=== PATIENT | female | born 1970 | race Caucasian/White ===

== ENCOUNTER → 2023-09-16 08:15 | Outpatient (REF) | payer OTHER, SELFPAY | LOC: WDC 08:15 | PROVIDERS: ATTENDING PHYSICIAN Nurse Practitioner Adult Health | DX: Z12.31 Encounter for screening mammogram for malignant neoplasm of breast (principal) | CPT/HCPCS: 77063; 77067 ==

== ENCOUNTER → 2023-09-24 09:26 | Outpatient (REF) | payer OTHER, SELFPAY | LOC: WDC 09:26 | PROVIDERS: ATTENDING PHYSICIAN Obstetrics & Gynecology; FAMILY PHYSICIAN Nurse Practitioner Adult Health | DX: N63.20 Unspecified lump in the left breast, unspecified quadrant (principal) | CPT/HCPCS: 76642 ==

== ENCOUNTER 2024-08-25 10:28 | Emergency (ER) | payer OTHER, SELFPAY ==
[2024-08-25 10:34] VITALS: BP 148/74
[2024-08-25 10:55] LABS: % Basophils 1.1 % (0-2); % Eosinophils 1.6 % (0-6); % Immature Granulocytes 0.3 % (0-0.5); % Lymphocytes 32.1 % (20.5-51.1); % Monocytes 5.6 % (1.7-9.3); % Neutrophils 59.3 % (42.2-75.2); Absolute Basophils 0.1 10^3/uL (0-0.2); Absolute Eosinophils 0.1 10^3/uL (0-0.7); Absolute Lymphocytes 2.3 10^3/uL (1.2-3.4); Absolute Monocytes 0.4 10^3/uL (0.1-0.6); Absolute Neutrophils 4.3 10^3/uL (1.4-6.5); Hemoglobin 13.8 g/dL (12.0-16.0); Mean Corp Hgb Conc. 33.7 g/dL (33.0-37.0); Mean Corpuscular Hgb 28.8 pg (27.0-31.0); Mean Corpuscular Volume 85.4 fL (81.0-99.0); Mean Platelet Volume 10.1 fL (7.4-10.4); Nucleated Red Blood Cells % 0 %; Platelet Count 278 10^3/uL (130-400); Red Cell Dist. Width 12.5 % (11.5-14.5); White Blood Cell Count 7.3 10^3/uL (4.8-10.8)
[2024-08-25 11:09] LABS: ALT (SGPT) 17 U/L (0-35); AST (SGOT) 20 U/L (14-36); Albumin 4.5 g/dl (3.5-5.0); Alkaline Phosphatase 70 U/L (38-126); Blood Urea Nitrogen 15 mg/dl (7-17); Calcium 9.6 mg/dl (8.4-10.2); Carbon Dioxide 28 mmol/L (22-30); Chloride 102 mmol/L (98-107); Glucose 173 mg/dl (70-99); Potassium 4.2 mmol/L (3.5-5.1); Sodium 139 mmol/L (135-145); Total Bilirubin 0.5 mg/dl (0.2-1.3); eGFR > 60.00
[2024-08-25 12:16] VITALS: BP 178/94
[2024-08-25 12:17] LABS: Troponin I < 0.012 ng/ml
--- NOTE | 2024-08-25 12:31 | ED.GENMED ---
History of Present Illness
General
Chief Complaint: Heart Rate Problem
Time Seen by Provider: 08/25/24 12:11
History of Present Illness
History of Present Illness:
54-year-old female with history of insulin-dependent diabetes, hyperlipidemia, and borderline hypertension presents to the emergency department for evaluation of heart palpitations and chest tightness occurring randomly over the past 3 days.
Episodes are seemingly random with no obvious provocation or palliation. Denies any exertional component. She did record several episodes on her Apple Watch personally reviewed these tracings multiple of which show PACs. She denies any symptoms
at present. Does report having a viral URI earlier this month but denies any recent fevers or chills, no shortness of breath, nausea, vomiting, or diarrhea. No new medication changes. Denies tobacco use.
Past History
Past History
ED Past Medical History: None
Social History
Living: with family
Employment: Employed
Review of Systems
Review of Systems
Allergies reviewed?: Yes
All Other Systems: ROS reviewed and negative except as documented in HPI and ROS
Phy Exam
Physical Exam
Physical Exam:
GEN: Well appearing, NAD, WDWN
HEENT: Oral mucosa moist, no scleral icterus
Cardiac: Regular rate and rhythm, no murmurs
Lung: No respiratory distress, no tachypnea, lungs clear to auscultation bilaterally
MSK: No gross deformity or injuries
Skin: Good color, no pallor or jaundice, no rashes
Neuro: AO x3, moves all extremities freely
Psych: Calm, cooperative
Course
Orders/Labs/Results
Orders:
Orders
08/25/24 10:29
Electrocardiogram (*1) Urgent
Reason for Study: Palpitations
EKG- Treatment ONCE
08/25/24 10:37
CMP [Comprehensive Metabolic Panel] Urgent
Complete Blood Count/With Diff Urgent
TSH Reflex To Free T4 Urgent
Comment: ADD ON
Troponin I Urgent
08/25/24 12:19
Add On- LAB Urgent
Tests Added?: TSH with reflex to T4
Abnormal Lab Results
08/25/24
10:37
Glucose 173 H mg/dl
(70-99)
08/25/24 10:37
08/25/24 10:37
Vital Signs
Initial and Last Documented VS:
Initial Vital Signs
Temp Pulse Resp BP Pulse Ox
98.5 F 86 16 148/74 97
08/25/24 10:34 08/25/24 10:34 08/25/24 10:34 08/25/24 10:34 08/25/24 10:34
Last Documented Vital Signs
Temp Pulse Resp BP Pulse Ox
98.5 F 75 18 178/94 99
08/25/24 10:34 08/25/24 12:19 08/25/24 12:17 08/25/24 12:16 08/25/24 12:17
MDM/Problems Addressed
MDM/Problems Addressed:
Patient with no appreciable ectopy in the emergency department. I did review her Apple Watch data showing frequent PACs which likely correlate with her symptoms. Discussed potential use of a beta-elizabeth however she is diabetic thus this would be
disadvantageous as a good mask hypoglycemic symptoms. Recommend outpatient cardiology follow-up
Comment
Comment:
EKG independently interpreted by me shows normal sinus rhythm at a rate of [address] changes concerning for ischemia
*Critical Care Note
Total Time (30-74mins, 75-104mins- exclusive of procedures): Not Applicable
ED Attending Note
-
Portions of this chart may have been created with voice recognition software.� Occasional wrong word or��sound alike� substitutions may have occurred due to the inherent limitations of voice recognition software.
Discharge Plan
Departure
Patient Disposition: Home (Routine Discharge)
Date of Disposition: 08/25/24
Time of Disposition: 14:26
Patient with high blood pressure during this ER visit?: No
Discharge Problem:
Atrial contractions, premature
Instructions: Palpitations (DC), Chest Pain CBC Follow Up
Prescriptions:
No Action
ascorbic acid (vitamin C) [Vitamin C] 1,000 MG tablet
1,000 mg PO DAILY
diphenhydramine-acetaminophen [Tylenol PM Extra Strength] 1 EACH tablet
2 ea PO HS
cholecalciferol (vitamin D3) [Vitamin D3] 1,000 UNIT capsule
1,000 unit PO DAILY
insulin glargine [Lantus Solostar U-100 Insulin] 300 UNITS/3 ML insulin pen
18 units SC DAILY
insulin glargine [Lantus Solostar U-100 Insulin] 300 UNITS/3 ML insulin pen
20 units SC HS
liraglutide [Victoza 2-Hiram] 0.6 MG/0.1 ML pen injector
1.8 mg SQ DAILY@0800
multivitamin with folic acid [Tab-A-Kelsey] 1 TABLET tablet
1 tab PO DAILY
Triple Immunity
1 tab PO DAILY
Referrals:
Amna Robbins CRNP [Family Provider] -
Activity Restrictions/Additional Instructions:
Your symptoms are most likely due to premature contractions, however I recommend you follow up with a preschool teacher's assistant to discuss further testing to rule out coronary artery disease
A beta elizabeth, such as metoprolol, could improve your symptoms, however this will mask signs of low blood sugar and would not be recommended to treat your PACs
Interventions
Interventions:
*Risk Screen - Suicide Last Done: 08/25/24 10:34
*General Assessment Last Done: 08/25/24 10:34
*Neglect/Abuse Screening Last Done: 08/25/24 10:34
ED- Fall Risk Assessment Last Done: 08/25/24 12:18
*ED COVID-19 Vaccine History Last Done: 08/25/24 10:34
*Nursing Disposition Last Done: 08/25/24 15:51
ED- Cardiac Assessment Last Done: 08/25/24 12:18
ED- Pulmonary Assessment Last Done: 08/25/24 12:18
Discharge Date and Time
Discharge Date/Time: 08/25/24 14:31
Print Language: MAURITIAN
[2024-08-25 15:49] LABS: TSH Reflex To Free T4 1.48 uIU/ml (0.47-4.68)
== END 2024-08-25 14:31 | disposition home or self-care (01) ==
LOC: EMR 10:28
PROVIDERS: Emergency Medicine; EMERGENCY PHYSICIAN Emergency Medicine; FAMILY PHYSICIAN Nurse Practitioner Adult Health
DX: I49.1 Atrial premature depolarization (principal); E11.9 Type 2 diabetes mellitus without complications; E78.00 Pure hypercholesterolemia, unspecified; Z79.4 Long term (current) use of insulin
CPT/HCPCS: 99283; 80053; 84443; 84484; 85025; 93005

== ENCOUNTER → 2024-09-19 08:19 | Outpatient (REF) | payer OTHER, SELFPAY | LOC: WDC 08:19 | PROVIDERS: ATTENDING PHYSICIAN Internal Medicine Cardiovascular Disease; FAMILY PHYSICIAN Nurse Practitioner Adult Health | DX: Z12.31 Encounter for screening mammogram for malignant neoplasm of breast (principal); I10 Essential (primary) hypertension; R00.2 Palpitations; I49.1 Atrial premature depolarization; I49.3 Ventricular premature depolarization | CPT/HCPCS: 77063; 77067; 93306 ==